=== PATIENT | male | born 1955 | race Caucasian/White ===

== ENCOUNTER → 2018-01-23 | Outpatient (CLI) | payer BC | END | disposition home or self-care (01) | LOC: CVU 12:38 | PROVIDERS: ATTEND Internal Medicine Cardiovascular Disease | DX: I35.8 Other nonrheumatic aortic valve disorders (principal) | CPT/HCPCS: 0399T; 93306 ==

== ENCOUNTER → 2018-03-19 | Outpatient (CLI) | payer BC | END | disposition home or self-care (01) | LOC: CFH 14:14 | PROVIDERS: ATTEND Physician Assistant | DX: J98.11 Atelectasis (principal) | CPT/HCPCS: 71046 ==

== ENCOUNTER → 2018-05-12 | Outpatient (CLI) | payer BC ==
[~2018-05-12] MED LIST: ACET325T14 PO; AMLO10TA6 PO; IBUP-1484 PO; LEVO500T47 PO; OMEP10CA4 PO; OMNIPAQUE 350 MG/ML, 75ML BOTTLE ONE
== END | disposition home or self-care (01) ==
LOC: RAD 10:59
PROVIDERS: ATTEND Nurse Practitioner Family
DX: J90 Pleural effusion, not elsewhere classified (principal); R59.0 Localized enlarged lymph nodes
CPT/HCPCS: 71260; Q9967

== ENCOUNTER 2018-05-13 09:23 | Inpatient (IN) | payer BC ==
[~2018-05-13] VITALS: Ht 175.3 cm; Wt 91.6 kg
[2018-05-13] MEDS ORDERED: AMLO10TA6 PO (10:54)
[2018-05-13] MEDS ORDERED: LIDOCAINE-MPF 2%, 2ML ONE (11:10)
[2018-05-13] MEDS ORDERED: MORPHINE SULFATE 4 MG/ML, 1ML ONE (11:47)
[2018-05-13] MEDS ORDERED: LORazepam 2 MG/ML, 1ML ONE (11:58)
[2018-05-13] MEDS ORDERED: HYDROmorphone 2 MG/ML, 1ML ONE (11:58)
[2018-05-13] MEDS ORDERED: LORazepam 2 MG/ML, 1ML IVPush ONE (12:00)
[2018-05-13] MEDS ORDERED: MORPHINE SULFATE 4 MG/ML, 1ML IVPush PRN (12:00)
[2018-05-13] MEDS ORDERED: HYDROmorphone 2 MG/ML, 1ML IVPush PRN (12:00)
[2018-05-13 12:13] LABS: MEAN CORPUSCULAR HEMOGLOBIN 31.2 pg (27.5-34.5); MEAN CORPUSCULAR HGB CONC 33.9 g/dL (33.2-36.2); MEAN PLATELET VOLUME 8.1 fL (7.4-10.4); PLATELET COUNT 256 x10^3/uL (130-400); RED BLOOD COUNT 4.87 x10^6/uL (4.38-5.82); RED CELL DISTRIBUTION WIDTH 13.9 % (9.4-14.8)
[2018-05-13 12:21] LABS: ALBUMIN 3.3 g/dL (3.4-5.0); ANION GAP 9 mmol/L (5-15); CALCIUM 9.1 mg/dL (8.5-10.1); CHLORIDE 106 mmol/L (98-107); CREATININE 1.13 mg/dL (0.7-1.3)
[2018-05-13 12:48] LABS: MD YES
[2018-05-13 12:50] LABS: <PLATELET ESTIMATE> ADEQUATE; <RBC MORPHOLOGY> NORMAL; LYMPH#(MANUAL) 5.91 x10^3/uL (1-3.4); LYMPHS% (MANUAL) 33 % (22-44); MONOS% (MANUAL) 5 % (2-9); SEGS% (MANUAL) 62 % (42-75)
[2018-05-13 12:51] LABS: <PLT MORPHOLOGY> NORMAL PLT MORPH
[2018-05-13] MEDS ORDERED: ONDANSETRON ODT 4 MG PO PRN (13:00)
[2018-05-13] MEDS ORDERED: MEROPENEM 1 GM in SODIUM CHLORIDE 0.9% 100 ML IV ONE (13:00)
[2018-05-13] MEDS ORDERED: LABETALOL 5MG/ML, 20ML IVPush PRN (13:00)
[2018-05-13 13:26] LABS: CELLS COUNTED 287
[2018-05-13] MEDS ORDERED: SODIUM CHLORIDE 0.9% 1,000 ML IV SCH (13:30)
[2018-05-13 13:48] VITALS: BP 150/73
[2018-05-13] MEDS: OXYcodone IR 5MG TABLET PO PRN ×3 (14:09→22:33)
[2018-05-13] MEDS: MEROPENEM 1 GM in SODIUM CHLORIDE 0.9% 100 ML IV SCH (16:00)
[2018-05-13] MEDS ORDERED: IBUPROFEN 200 MG TABLET PO PRN (16:30)
[2018-05-13 20:00] VITALS: BP 153/80
[2018-05-13] MEDS: ACETAMINOPHEN 325 MG TABLET PO PRN (21:19)
[2018-05-13 22:15] VITALS: BP 137/78
[2018-05-14 01:30] VITALS: BP 145/78
[2018-05-14] MEDS: OXYcodone IR 5MG TABLET PO PRN (02:34)
[2018-05-14] MEDS: MEROPENEM 1 GM in SODIUM CHLORIDE 0.9% 100 ML IV SCH ×2 (04:13→17:25)
[2018-05-14 05:07] LABS: ALBUMIN 2.5 g/dL (3.4-5.0); ANION GAP 8 mmol/L (5-15); CALCIUM 8.3 mg/dL (8.5-10.1); CHLORIDE 106 mmol/L (98-107)
[2018-05-14 05:10] LABS: ALANINE AMINOTRANSFERASE 91 U/L (12-78); ALKALINE PHOSPHATASE 103 U/L (45-117); BILIRUBIN,TOTAL 1.7 mg/dL (0.2-1.0); CREATININE 1.21 mg/dL (0.7-1.3); TOTAL PROTEIN 6.3 g/dL (6.4-8.2)
[2018-05-14 06:19] LABS: MEAN CORPUSCULAR HEMOGLOBIN 30.9 pg (27.5-34.5); MEAN CORPUSCULAR HGB CONC 33.7 g/dL (33.2-36.2); MEAN CORPUSCULAR VOLUME 91.8 fL (81-97); MEAN PLATELET VOLUME 7.6 fL (7.4-10.4); PLATELET COUNT 247 x10^3/uL (130-400); RED BLOOD COUNT 4.87 x10^6/uL (4.38-5.82); RED CELL DISTRIBUTION WIDTH 13.6 % (9.4-14.8)
[2018-05-14] MEDS: ACETAMINOPHEN 325 MG TABLET PO PRN ×4 (06:28→21:05)
[2018-05-14 06:43] LABS: BASOPHILS # (AUTO) 0.07 x10^3/uL (0-0.1); BASOPHILS % (AUTO) 0 % (0-1); EOSINOPHILS # (AUTO) 0.15 x10^3/uL (0-0.4); EOSINOPHILS % (AUTO) 1 % (1-7); LYMPHOCYTES % (AUTO) 17 % (22-44); MD SCAN; MONOCYTES # (AUTO) 1.59 x10^3/uL (0.2-0.8); MONOCYTES % (AUTO) 9 % (2-9); NEUTROPHILS # (AUTO) 12.51 x10^3/uL (1.8-6.8); NEUTROPHILS % (AUTO) 72 % (42-75)
[2018-05-14 07:53] LABS: INTERNATIONAL NORMALIZED RATIO 1.05 (0.93-1.1); PROTHROMBIN TIME 10.9 Seconds (9.6-11.5)
[2018-05-14 08:01] VITALS: BP 125/75
[2018-05-14 08:26] LABS: HEMOGLOBIN A1C 5.5 % (4.2-6.3)
[2018-05-14] MEDS: OMEPRAZOLE 10 MG CAPSULE.DR PO SCH (08:38)
[2018-05-14] MEDS ORDERED: MAGNESIUM HYDROXIDE 8%, 30ML UDC PO PRN (10:30)
[2018-05-14] MEDS: SENNA/DOCUSATE TABLET PO SCH ×2 (11:11→21:05)
[2018-05-14 12:20] VITALS: BP 134/74
[2018-05-14] MEDS ORDERED: SODIUM CHLORIDE 0.9% 1,000 ML IV SCH (13:30)
[2018-05-14 21:03] VITALS: BP 139/67
[2018-05-15 01:45] VITALS: BP 155/86
[2018-05-15] MEDS: ACETAMINOPHEN 325 MG TABLET PO PRN ×3 (01:50→09:18)
[2018-05-15] MEDS: MEROPENEM 1 GM in SODIUM CHLORIDE 0.9% 100 ML IV SCH ×2 (05:28→18:36)
[2018-05-15 06:08] LABS: ALANINE AMINOTRANSFERASE 43 U/L (12-78); ALBUMIN 2.3 g/dL (3.4-5.0); ANION GAP 7 mmol/L (5-15); CALCIUM 8.1 mg/dL (8.5-10.1); CHLORIDE 104 mmol/L (98-107)
[2018-05-15 06:11] LABS: ALKALINE PHOSPHATASE 82 U/L (45-117); BILIRUBIN,TOTAL 0.4 mg/dL (0.2-1.0); CREATININE 0.85 mg/dL (0.7-1.3); TOTAL PROTEIN 6.1 g/dL (6.4-8.2)
[2018-05-15 06:25] LABS: MEAN CORPUSCULAR HEMOGLOBIN 30.9 pg (27.5-34.5); MEAN CORPUSCULAR HGB CONC 33.8 g/dL (33.2-36.2); MEAN CORPUSCULAR VOLUME 91.4 fL (81-97); MEAN PLATELET VOLUME 7.9 fL (7.4-10.4); RED BLOOD COUNT 4.31 x10^6/uL (4.38-5.82); RED CELL DISTRIBUTION WIDTH 13.3 % (9.4-14.8)
[2018-05-15 08:00] VITALS: BP 127/75
[2018-05-15] MEDS: OMEPRAZOLE 10 MG CAPSULE.DR PO SCH (09:17)
[2018-05-15] MEDS: SENNA/DOCUSATE TABLET PO SCH ×2 (09:18→21:40)
[2018-05-15 09:20] LABS: PLATELET COUNT 268 x10^3/uL (130-400)
[2018-05-15 09:23] LABS: BASOPHILS # (AUTO) 0.09 x10^3/uL (0-0.1); BASOPHILS % (AUTO) 1 % (0-1); EOSINOPHILS # (AUTO) 0.37 x10^3/uL (0-0.4); EOSINOPHILS % (AUTO) 2 % (1-7); LYMPHOCYTES # (AUTO) 2.73 x10^3/uL (1-3.4); LYMPHOCYTES % (AUTO) 16 % (22-44); MD SCAN; MONOCYTES # (AUTO) 1.15 x10^3/uL (0.2-0.8); MONOCYTES % (AUTO) 7 % (2-9); NEUTROPHILS # (AUTO) 12.72 x10^3/uL (1.8-6.8); NEUTROPHILS % (AUTO) 75 % (42-75)
[2018-05-15] MEDS ORDERED: LIDOCAINE-MPF 2%, 2ML ONE ×2 (10:58→11:47)
[2018-05-15] MEDS ORDERED: MIDAZOLAM 1 MG/ML, 5ML ONE (11:18)
[2018-05-15] MEDS ORDERED: NALOXONE 1 MG/ML, 2ML ONE (11:18)
[2018-05-15] MEDS ORDERED: FENTANYL PF 100 MCG/2ML ONE (11:18)
[2018-05-15] MEDS ORDERED: FLUMAZENIL 0.1 MG/1 ML, 5ML ONE (11:18)
[2018-05-15] MEDS: OXYcodone IR 5MG TABLET PO PRN ×3 (13:13→21:40)
[2018-05-15 15:41] VITALS: BP 134/76
[2018-05-15 20:00] VITALS: BP 137/77
[2018-05-16 00:48] VITALS: BP 151/79
[2018-05-16] MEDS: OXYcodone IR 5MG TABLET PO PRN ×2 (03:34→08:32)
[2018-05-16 05:25] LABS: ALBUMIN 2.2 g/dL (3.4-5.0); ANION GAP 8 mmol/L (5-15); CALCIUM 8.2 mg/dL (8.5-10.1); CHLORIDE 103 mmol/L (98-107)
[2018-05-16 05:30] LABS: ALANINE AMINOTRANSFERASE 48 U/L (12-78); ALKALINE PHOSPHATASE 141 U/L (45-117); BILIRUBIN,TOTAL 0.3 mg/dL (0.2-1.0); CREATININE 0.79 mg/dL (0.7-1.3)
[2018-05-16] MEDS: MEROPENEM 1 GM in SODIUM CHLORIDE 0.9% 100 ML IV SCH ×2 (05:36→18:16)
[2018-05-16 06:58] LABS: MEAN CORPUSCULAR HEMOGLOBIN 31.2 pg (27.5-34.5); MEAN CORPUSCULAR HGB CONC 33.6 g/dL (33.2-36.2); MEAN CORPUSCULAR VOLUME 92.9 fL (81-97); MEAN PLATELET VOLUME 7.8 fL (7.4-10.4); PLATELET COUNT 254 x10^3/uL (130-400); RED BLOOD COUNT 4.03 x10^6/uL (4.38-5.82); RED CELL DISTRIBUTION WIDTH 13.4 % (9.4-14.8)
[2018-05-16 07:00] VITALS: BP 120/80
[2018-05-16 07:00] LABS: BASOPHILS # (AUTO) 0.02 x10^3/uL (0-0.1); BASOPHILS % (AUTO) 0 % (0-1); EOSINOPHILS # (AUTO) 0.48 x10^3/uL (0-0.4); EOSINOPHILS % (AUTO) 4 % (1-7); LYMPHOCYTES # (AUTO) 2.63 x10^3/uL (1-3.4); LYMPHOCYTES % (AUTO) 23 % (22-44); MD SCAN; MONOCYTES # (AUTO) 0.86 x10^3/uL (0.2-0.8); MONOCYTES % (AUTO) 8 % (2-9); NEUTROPHILS # (AUTO) 7.32 x10^3/uL (1.8-6.8); NEUTROPHILS % (AUTO) 65 % (42-75)
[2018-05-16] MEDS: AMLODIPINE 10 MG TAB PO SCH ×2 (08:32→08:35)
[2018-05-16] MEDS: SENNA/DOCUSATE TABLET PO SCH ×2 (08:33→21:00)
[2018-05-16] MEDS: OMEPRAZOLE 10 MG CAPSULE.DR PO SCH (08:33)
[2018-05-16] MEDS: ACETAMINOPHEN 325 MG TABLET PO PRN ×2 (12:50→20:08)
[2018-05-16 13:15] VITALS: BP 154/73
[2018-05-16 19:05] VITALS: BP 152/75
[2018-05-16] MEDS ORDERED: OMNIPAQUE 350 MG/ML, 100ML BOTTLE ONE (19:31)
[2018-05-17] MEDS: ACETAMINOPHEN 325 MG TABLET PO PRN ×4 (00:25→22:26)
[2018-05-17 00:27] VITALS: BP 137/84
[2018-05-17 05:11] LABS: BASOPHILS # (AUTO) 0.03 x10^3/uL (0-0.1); BASOPHILS % (AUTO) 0 % (0-1); EOSINOPHILS # (AUTO) 0.28 x10^3/uL (0-0.4); EOSINOPHILS % (AUTO) 4 % (1-7); LYMPHOCYTES # (AUTO) 2.13 x10^3/uL (1-3.4); LYMPHOCYTES % (AUTO) 28 % (22-44); MD NO; MEAN CORPUSCULAR HEMOGLOBIN 31.1 pg (27.5-34.5); MEAN CORPUSCULAR HGB CONC 33.7 g/dL (33.2-36.2); MEAN CORPUSCULAR VOLUME 92.2 fL (81-97); MEAN PLATELET VOLUME 7.2 fL (7.4-10.4); MONOCYTES # (AUTO) 0.72 x10^3/uL (0.2-0.8); MONOCYTES % (AUTO) 10 % (2-9); NEUTROPHILS # (AUTO) 4.45 x10^3/uL (1.8-6.8); NEUTROPHILS % (AUTO) 58 % (42-75); PLATELET COUNT 254 x10^3/uL (130-400); RED BLOOD COUNT 4.07 x10^6/uL (4.38-5.82); RED CELL DISTRIBUTION WIDTH 12.9 % (9.4-14.8)
[2018-05-17] MEDS: MEROPENEM 1 GM in SODIUM CHLORIDE 0.9% 100 ML IV SCH (05:36)
[2018-05-17 07:29] VITALS: BP_SYST 131; BP_SYST 144; BP_DIAS 68; BP_DIAS 70
[2018-05-17] MEDS: SENNA/DOCUSATE TABLET PO SCH ×2 (08:49→20:03)
[2018-05-17] MEDS: AMLODIPINE 10 MG TAB PO SCH (08:49)
[2018-05-17] MEDS: OMEPRAZOLE 10 MG CAPSULE.DR PO SCH (08:49)
[2018-05-17] MEDS ORDERED: LEVOFLOXACIN 500 MG TABLET PO SCH (12:30)
[2018-05-17] MEDS ORDERED: OMNIPAQUE 350 MG/ML, 100ML BOTTLE ONE (14:24)
[2018-05-17 14:30] VITALS: BP 144/74
[2018-05-17] MEDS: MEROPENEM 500 MG in SODIUM CHLORIDE 0.9% 100 ML IV SCH (18:00)
[2018-05-17 18:51] VITALS: BP 158/71
[2018-05-18 02:39] VITALS: BP 154/92
[2018-05-18] MEDS: MEROPENEM 500 MG in SODIUM CHLORIDE 0.9% 100 ML IV SCH (04:13)
[2018-05-18 06:48] VITALS: BP 133/75
[2018-05-18] MEDS: OMEPRAZOLE 10 MG CAPSULE.DR PO SCH (07:30)
[2018-05-18] MEDS: SENNA/DOCUSATE TABLET PO SCH (08:37)
[2018-05-18] MEDS: AMLODIPINE 10 MG TAB PO SCH (08:47)
[2018-05-18] MEDS: ACETAMINOPHEN 325 MG TABLET PO PRN (08:47)
[2018-05-18] MEDS ORDERED: ACET325T14 PO (11:35)
[2018-05-18] MEDS ORDERED: IBUP-1484 PO (11:35)
[2018-05-18] MEDS ORDERED: OMEP10CA4 PO (11:35)
[2018-05-18] MEDS ORDERED: LEVO500T47 PO (11:36)
== END 2018-05-18 14:04 | disposition home or self-care (01) | DRG 180 ==
LOC: ED 11:08 → EDIP 11:56 → OBSVTOIN 12:34 → 4EST 13:52
PROVIDERS: ADMIT Internal Medicine; ATTEND Internal Medicine
PROC: 0W993ZZ Drainage of Right Pleural Cavity, Percutaneous Approach (ICD-10-PCS; principal; 2018-05-13)
PROC: 0W9930Z Drainage of Right Pleural Cavity with Drainage Device, Percutaneous Approach (ICD-10-PCS; 2018-05-15)
DX: C34.91 Malignant neoplasm of unspecified part of right bronchus or lung (principal); J96.01 Acute respiratory failure with hypoxia; E44.1 Mild protein-calorie malnutrition; E87.2 Acidosis; J98.11 Atelectasis; J91.0 Malignant pleural effusion; R73.9 Hyperglycemia, unspecified; I10 Essential (primary) hypertension; D72.829 Elevated white blood cell count, unspecified; F40.240 Claustrophobia; I65.22 Occlusion and stenosis of left carotid artery; K76.0 Fatty (change of) liver, not elsewhere classified; T36.0X5A Adverse effect of penicillins, initial encounter; Z88.0 Allergy status to penicillin; Z68.29 Body mass index [BMI] 29.0-29.9, adult; Z87.891 Personal history of nicotine dependence
CPT/HCPCS: 32555; 32557; 36415; 70470; 71045; 71046; 71250; 74177; 76700; 80048; 80053; 82040; 82042; 82150; 82945; 83036; 83605; 83615; 83880; 83986; 84157; 85025; 85610; 85730; 87015; 87040; 87070; 87102; 87116; 87205; 87206; 88112; 88305; 88341; 88342; 89051; 93005; 93306; 93880; 96374; 99156; 99157; 99285; G0378; J2185; J2250; J3010; J3490; Q9967; C1729; C1769; G0461; J2060; J2310; J7030

== ENCOUNTER → 2018-05-22 | Outpatient (CLI) | payer BC ==
[~2018-05-22] MED LIST changes: -OMNIPAQUE 350 MG/ML, 75ML BOTTLE ONE
== END | disposition home or self-care (01) ==
LOC: CFH 09:04
PROVIDERS: ATTEND Internal Medicine
DX: J90 Pleural effusion, not elsewhere classified (principal)
CPT/HCPCS: 71046

== ENCOUNTER 2018-05-29 21:34 | Emergency (ER) | payer BC ==
[~2018-05-29] VITALS: Ht 175.3 cm; Wt 86.6 kg
[2018-05-29 22:31] LABS: BASOPHILS # (AUTO) 0.02 x10^3/uL (0-0.1); BASOPHILS % (AUTO) 0 % (0-1); EOSINOPHILS # (AUTO) 0.24 x10^3/uL (0-0.4); EOSINOPHILS % (AUTO) 2 % (1-7); LYMPHOCYTES # (AUTO) 2.28 x10^3/uL (1-3.4); LYMPHOCYTES % (AUTO) 22 % (22-44); MD NO; MEAN CORPUSCULAR HEMOGLOBIN 30.7 pg (27.5-34.5); MEAN CORPUSCULAR HGB CONC 34.1 g/dL (33.2-36.2); MONOCYTES # (AUTO) 1.05 x10^3/uL (0.2-0.8); MONOCYTES % (AUTO) 10 % (2-9); NEUTROPHILS # (AUTO) 6.88 x10^3/uL (1.8-6.8); NEUTROPHILS % (AUTO) 66 % (42-75); PLATELET COUNT 362 x10^3/uL (130-400); RED BLOOD COUNT 4.29 x10^6/uL (4.38-5.82); RED CELL DISTRIBUTION WIDTH 13.4 % (9.4-14.8)
[2018-05-29 22:37] LABS: ANION GAP 10 mmol/L (5-15); CALCIUM 8.6 mg/dL (8.5-10.1); CHLORIDE 110 mmol/L (98-107); CREATININE 0.79 mg/dL (0.7-1.3)
[2018-05-29 22:41] LABS: TROPONIN I < 0.015 ng/mL (0.000-0.045)
[2018-05-29 23:10] VITALS: BP 146/76
== END 2018-05-29 23:15 | disposition home or self-care (01) ==
LOC: ED 22:46
DX: I10 Essential (primary) hypertension (principal); Z88.0 Allergy status to penicillin; Z87.891 Personal history of nicotine dependence
CPT/HCPCS: 36415; 80048; 82040; 84484; 85025; 93005; 99285

== ENCOUNTER → 2018-06-13 | Outpatient (CLI) | payer BC ==
[~2018-06-13] MED LIST changes: +AMLO5TAB7 PO; +ASCO500T8 PO; +ASPI-496 PO; +OMEG1CAP23 PO
== END | disposition home or self-care (01) ==
LOC: CFH 12:23
PROVIDERS: ATTEND Internal Medicine Critical Care Medicine
DX: J90 Pleural effusion, not elsewhere classified (principal); J18.9 Pneumonia, unspecified organism
CPT/HCPCS: 71046

== ENCOUNTER 2018-06-18 08:50 | Day surgery (SDC) | payer BC ==
[~2018-06-18] VITALS: Ht 175.3 cm; Wt 84.4 kg
[~2018-06-18 08:50] MED LIST changes: -AMLO5TAB7 PO; -ASCO500T8 PO; -ASPI-496 PO; -OMEG1CAP23 PO
[2018-06-18] MEDS ORDERED: ASPI-496 PO (09:30)
[2018-06-18] MEDS ORDERED: AMLO5TAB7 PO (09:30)
[2018-06-18] MEDS ORDERED: OMEG1CAP23 PO (09:30)
[2018-06-18] MEDS ORDERED: ASCO500T8 PO (09:30)
[2018-06-18] MEDS ORDERED: SODIUM CHLORIDE 0.9% 1,000 ML IV SCH (09:31)
[2018-06-18 09:32] VITALS: BP 138/83
[2018-06-18] MEDS ORDERED: MIDAZOLAM 1 MG/ML, 5ML ONE (10:55)
[2018-06-18] MEDS ORDERED: FENTANYL PF 100 MCG/2ML ONE (10:55)
[2018-06-18] MEDS ORDERED: NALOXONE 1 MG/ML, 2ML ONE (10:55)
[2018-06-18] MEDS ORDERED: FLUMAZENIL 0.1 MG/1 ML, 5ML ONE (10:55)
[2018-06-18] MEDS ORDERED: LIDOCAINE-MPF 1%, 5ML ONE (11:00)
[2018-06-18] MEDS ORDERED: ACETAMINOPHEN 325 MG TABLET PO ONE (15:00)
== END 2018-06-18 15:00 | disposition home or self-care (01) ==
LOC: OUT 08:50
PROVIDERS: ATTEND Internal Medicine Critical Care Medicine
DX: J91.0 Malignant pleural effusion (principal); I10 Essential (primary) hypertension; Z79.82 Long term (current) use of aspirin; Z88.1 Allergy status to other antibiotic agents; Z88.0 Allergy status to penicillin; Z88.8 Allergy status to other drugs, medicaments and biological substances; Z79.899 Other long term (current) drug therapy; Z87.891 Personal history of nicotine dependence; Z86.718 Personal history of other venous thrombosis and embolism
CPT/HCPCS: 32550; 71045; 75989; 99156; 99157; C1729; J2250; J3010; J7030; 32557; 76937; 76942; J2310

== ENCOUNTER → 2018-12-23 | Outpatient (CLI) | payer BC ==
[~2018-12-23] MED LIST changes: +AMLO-150 PO; -AMLO10TA6 PO; +AMLO10TA8 PO; +ASCO500T8 PO; +ASPI-496 PO; +OMEG1CAP23 PO
== END | disposition home or self-care (01) ==
LOC: CFH 13:54
PROVIDERS: ATTEND Internal Medicine Critical Care Medicine
DX: J90 Pleural effusion, not elsewhere classified (principal)
CPT/HCPCS: 71046

== ENCOUNTER → 2019-01-08 | Outpatient (CLI) | payer BC | END | disposition home or self-care (01) | LOC: CFH 14:33 | PROVIDERS: ATTEND Internal Medicine Critical Care Medicine | DX: J92.9 Pleural plaque without asbestos (principal); J90 Pleural effusion, not elsewhere classified; R91.8 Other nonspecific abnormal finding of lung field | CPT/HCPCS: 71046 ==

== ENCOUNTER → 2019-01-26 | Outpatient (CLI) | payer BC | END | disposition home or self-care (01) | LOC: CFH 12:41 | PROVIDERS: ATTEND Internal Medicine Critical Care Medicine | DX: J18.9 Pneumonia, unspecified organism (principal) | CPT/HCPCS: 71046 ==

== ENCOUNTER 2019-02-09 10:22 | Day surgery (SDC) | payer BC ==
[~2019-02-09] VITALS: Ht 175.3 cm; Wt 84.7 kg
[2019-02-09 11:04] VITALS: BP 121/71
[2019-02-09 11:06] VITALS: BP 121/70
[2019-02-09] MEDS ORDERED: B12 PO (11:13)
[2019-02-09] MEDS ORDERED: IRON PO (11:13)
[2019-02-09] MEDS ORDERED: ONDANSETRON PO (11:13)
[2019-02-09] MEDS ORDERED: FOLIC ACID PO (11:13)
[2019-02-09] MEDS ORDERED: PEMB100V IV (11:15)
[2019-02-09] MEDS ORDERED: SODIUM CHLORIDE 0.9% 1,000 ML IV SCH (11:30)
[2019-02-09] MEDS ORDERED: LIDOCAINE-MPF 1%, 5ML ONE ×2 (12:30→13:13)
[2019-02-09] MEDS ORDERED: FENTANYL PF 100 MCG/2ML ONE (12:52)
[2019-02-09] MEDS ORDERED: FLUMAZENIL 0.1 MG/1 ML, 5ML ONE (12:53)
[2019-02-09] MEDS ORDERED: NALOXONE 1 MG/ML, 2ML ONE (12:53)
[2019-02-09] MEDS ORDERED: MIDAZOLAM 1 MG/ML, 5ML ONE (12:53)
== END 2019-02-09 15:26 | disposition home or self-care (01) ==
LOC: RAD 10:22
PROVIDERS: ATTEND Internal Medicine Critical Care Medicine
DX: Z48.03 Encounter for change or removal of drains (principal); C34.91 Malignant neoplasm of unspecified part of right bronchus or lung; J91.0 Malignant pleural effusion; J18.9 Pneumonia, unspecified organism; I10 Essential (primary) hypertension; Z79.82 Long term (current) use of aspirin; Z79.899 Other long term (current) drug therapy; Z87.891 Personal history of nicotine dependence; Z88.0 Allergy status to penicillin; Z88.8 Allergy status to other drugs, medicaments and biological substances
CPT/HCPCS: 32552; 99156; 99157; J2250; J3010; J2310